=== PATIENT | female | born 1955 | race Caucasian/White ===

== ENCOUNTER → 2016-09-12 | Outpatient (CLI) | payer BC ==
[~2016-09-12] MED LIST: ALFALFA PO; ALPR-411 PO; ASCA500 PO; B COMPLEX PO; CARNITINE PO; CETI10TA84 PO; CLTP PO; COQ-10 PO; DOCU-105 PO; INDO-22 PO; MGN PO; MULT-506 PO; OMEG10007 PO; PSYL55.43 PO
--- NOTE | 2016-09-13 13:13 | MAMMOGRAPHY REPORT ---
BILATERAL DIGITAL SCREENING MAMMOGRAM TOMOSYNTHESIS WITH CAD: 09/12/2016 CLINICAL HISTORY: Routine screening. Patient has no complaints. TECHNIQUE: Breast tomosynthesis in addition to standard 2D mammography was performed. Current study was also evaluated with a Computer Aided Detection (CAD) system. COMPARISON: Comparison is made to exams dated: 09/08/2015 mammogram, 09/02/2014 mammogram, 01/14/2014 ma mmogram, 08/29/2013 mammogram, 08/26/2012 mammogram, and 08/16/2011 mammogram - [facility]. BREAST COMPOSITION: There are scattered areas of fibroglandular density in both breasts. FINDINGS: No new suspicious mass, architectural distortion or cluster of microcalcifications is seen . There is evidence of prior surgery within the left breast. Stable asymmetry in the lateral right breast. IMPRESSION: ACR BI-RADS CATEGORY 1: NEGATIVE There is no mammographic evidence of malignancy. A 1 year screening mammogram is recommended. The pa tient will receive written notification of the results. Approximately 10% of breast cancers are not detected with mammography. A negative mammographic report should not delay biopsy if a clinically suggestive mass is present. Geeta Peters M.D. ay/:09/12/2016 17:56:58 Party Coordinator: Leonidas MENA(R)(M), [facility] letter sent: Normal 1/2 BI-RADS Code: ACR BI-RADS Category 1: Negative
== END | disposition home or self-care (01) ==
LOC: C.MAMM 07:33
PROVIDERS: ATTEND Obstetrics & Gynecology
DX: Z12.31 Encounter for screening mammogram for malignant neoplasm of breast (principal)

== ENCOUNTER → 2016-12-30 | Outpatient (CLI) | payer BC ==
[2016-12-30 11:07] LABS: ALT/SGPT 26 U/L (12-78); AST/SGOT 13 U/L (15-37); BLOOD UREA NITROGEN 15 mg/dl (7-18); CALCIUM 8.6 mg/dl (8.5-10.1); CARBON DIOXIDE 33 mmol/L (21-32); CHLORIDE 108 mmol/L (98-107); CREATININE 0.82 mg/dl (0.60-1.20); GLUCOSE 91 mg/dl (70-99); SODIUM 142 mmol/L (136-145)
[2016-12-30 11:19] LABS: ALB/GLOB RATIO 1.2 (0.9-2); ALKALINE PHOSPHATASE 62 U/L (45-117); CHOLESTEROL 213 mg/dl (0-200); CHOLESTEROL/HDL RATIO 2.3; HDL CHOLESTEROL 94 mg/dl; LDL CHOLESTEROL CALCULATED 104 mg/dl; TRIGLYCERIDES 73 mg/dl (0-150); VERY LOW DENSITY LIPOPROT CALC 15 mg/dl
[2016-12-30 11:22] LABS: URINE APPEARANCE CLEAR (CLEAR); URINE BILIRUBIN NEG (NEG); URINE COLOR YELLOW; URINE NITRITE NEG (NEG); URINE PH 7.5 (4.5-7.5); URINE SPECIFIC GRAVITY 1.013 (1.000-1.030); UROBILINOGEN NEG (NEG); ZZUR CULT IF INDIC CLEAN CATCH NO
[2016-12-30 11:27] LABS: MANUAL MICROSCOPIC REQUIRED? NO; REVIEW REQ? NO
== END | disposition home or self-care (01) ==
LOC: C.LABBC 08:52
PROVIDERS: ATTEND Physician Assistant Medical
DX: Z00.00 Encounter for general adult medical examination without abnormal findings (principal); R31.29 Other microscopic hematuria; R51 Headache

== ENCOUNTER → 2017-05-23 | Outpatient (CLI) | payer BC, OTHER | END | disposition home or self-care (01) | LOC: C.RDSM 14:26 | PROVIDERS: ATTEND Physical Medicine & Rehabilitation Sports Medicine | DX: M25.531 Pain in right wrist (principal); M79.644 Pain in right finger(s); M25.532 Pain in left wrist; M79.645 Pain in left finger(s) ==

== ENCOUNTER → 2017-06-14 | Outpatient (CLI) | payer OTHER | END | disposition home or self-care (01) | LOC: C.MAMM 14:32 | PROVIDERS: ATTEND Physical Medicine & Rehabilitation Sports Medicine | DX: Z78.0 Asymptomatic menopausal state (principal); M85.88 Other specified disorders of bone density and structure, other site ==

== ENCOUNTER → 2017-08-09 | Outpatient (CLI) | payer OTHER ==
[~2017-08-09] MED LIST changes: -ALFALFA PO; -B COMPLEX PO; +CALC600T9 PO; -CARNITINE PO; -CLTP PO; +COEN100C7 PO; -COQ-10 PO; +CYAN100020 PO; +CYCL5TAB PO; -DOCU-105 PO; -MGN PO; +NAPR1TAB9 PO; -PSYL55.43 PO; +VNTHFA/IN INH
== END | disposition home health service (06) ==
LOC: C.CPL 13:31
PROVIDERS: ATTEND Physician Assistant
DX: G56.01 Carpal tunnel syndrome, right upper limb (principal); R20.0 Anesthesia of skin

== ENCOUNTER → 2017-08-16 | Day surgery (SDC) | payer OTHER ==
[2017-07-31 10:42] VITALS: Ht 165.1 cm; Wt 68.2 kg
[~2017-08-16] VITALS: Ht 165.1 cm; Wt 68.2 kg
[~2017-08-16] MED LIST changes: +BUPIVACAINE/EPINEPHRINE 0.5% MPF 1:200,000 30 ML VIAL ONE; +CEFAZOLIN 1000MG IV PUSH 7.5 ML IV SCH; +DEXAMETHASONE SOD INJ 4 MG/ML VIAL ONE; +FENTANYL CITRATE INJ 50 MCG/1 ML 2 ML VIAL ONE; +LACTATED RINGER'S 1000ML 1,000 ML IV SCH; +LIDOCAINE HCL 1% MPF 2 ML VIAL ONE; +LIDOCAINE HCL 2% 2 ML VIAL (20MG/ML) ONE; +LIDOCAINE/EPINEPHRINE 1% 20 ML VIAL ONE; +MIDAZOLAM HCL 1 MG/ML 2ML VIAL ONE; +NURSING VERBAL MED ORDER ONE; +ONDANSETRON INJ 2 MG/ML 2 ML VIAL ONE; +OXYCODONE HCL IR 5 MG TAB (IMMEDIATE RELEASE) PO PRN; +PROMETHAZINE HCL INJ 12.5 MG in SODIUM CHLORIDE 0.9% 50ML 50 ML IV SCH; +PROMETHAZINE HCL INJ 25 MG/ML 1 ML VIAL ONE; +PROPOFOL IV EMULSION 10 MG/ML 20 ML VIAL ONE
--- NOTE | 2017-08-16 07:01 | History & Physical Bridge Note ---
H&P Re-Evaluation Bridge Note: I have examined the patient, reviewed the History & Physical and in the interval since the performance of the History & Physical I have noted the following changes of clinical significance: No changes noted
--- NOTE | 2017-08-16 08:32 | [facility] Post Operative Brief Note ---
Immediate Operative Summary Operative Date August 16, 2017. Pre-Operative Diagnosis Right Carpal Tunnel Syndrome, Right CMC arthritis Post-Operative Diagnosis Same Procedure(s) Performed Right Carpal Tunnel Release And Right Thumb Carpometacarpal Joint Injection With Steroid Surgeon Dr. Link Loom Blower Surgeon(s) Dr. Eladia Lewis, Fellow Estimated Blood Loss 0 Findings Consistent with Post-Op Diagnosis Specimens None Drains None Anesthesia Type Local Complication(s) none Disposition Accompanied Pt To Recovery: no Disposition: Recovery Room / PACU
--- NOTE | 2017-08-16 08:43 | [facility] Operative Report ---
Operative Report Operative Date August 16, 2017. Pre-Operative Diagnosis Right Carpal Tunnel Syndrome, Right CMC arthritis Post-Operative Diagnosis Same Procedure(s) Performed Right Carpal Tunnel Release And Right Thumb Carpometacarpal Joint Injection With Steroid Surgeon Dr. Link Student Counsellor Surgeon(s) Dr. Eladia Lewis, Fellow Estimated Blood Loss 0 Findings None Specimens None Anesthesia Local with IV sedation Complication(s) None Disposition Recovery Room / PACU Indications The patient's a 62-year-old female with symptomatic right thumb CMC arthritis and right carpal tunnel syndrome refractory to nonsurgical methods of management. Description of Procedure Informed consent was obtained. The patient was identified as Margot rosa. The patient identified the operative site as the right hand which I marked with my initials. A preoperative surgical timeout was performed. A preop dose of IV antibiotics was given. The patient was positioned supine on the hospital stretcher with the right arm suspended on a hand table. A tourniquet was applied to the arm. The limb was prepped and draped in the usual sterile fashion. The examination under anesthesia was unremarkable. DVT prophylaxis was not indicated. 1% lidocaine and 0.5% Marcaine containing epinephrine were injected for a carpal tunnel block. The limb was exsanguinated with the Esmarch and the tourniquet was inflated to 225 mmHg. A midline longitudinal incision was made beginning at Jaquez's cardinal line. The incision stopped just short of the distal transverse wrist crease. Blunt dissection was performed down through the subcutaneous tissues and through the superficial palmar fascia. The transverse carpal ligament was identified and divided in line with the incision up into distal forearm fascia under direct visualization. A wide decompression was obtained. The contents of the carpal canal tendons median nerve and tenosynovium appeared to be normal. The wound was copiously irrigated with sterile saline and then closed with 4-0 nylon horizontal mattress stitches. A soft sterile dressing was applied. The tourniquet was let down after 10 of inflation. The patient was awakened from anesthesia without difficulty and taken to the recovery room in stable condition. There were no specimens or complications. Counts were correct at the end of the case. Blood loss was minimal. At the conclusion of the operation spoke to the patient's family and informed them of my findings. Detailed postoperative instructions were given. The patient will be rehabilitated according to the carpal tunnel protocol. Prior to the start of the procedure the right thumb carpometacarpal joint was injected with 10 mg of Depo-Medrol and 1/4 cc of 1% plain lidocaine. Sterile technique was utilized. I attest to the content of the Intraoperative Record and any orders documented therein. Any exceptions are noted below.
--- NOTE | 2017-08-16 08:44 | Discharge Instructions ---
Discharge Instructions Date of Service August 16, 2017. Admission Reason for Admission: Right Carpal Tunnel Syndromre, Right Thumb Pain Discharge Discharge Diagnosis / Problem: right carpal tunnel syndromem right thumb pain Discharge Goals Goal(s): Decrease discomfort, Improve function, Increase independence Activity Recommendations Activity Limitations: per Instructions/Follow-up section Lifting Limitations: until after follow-up appointment Exercise/Sports Limitations: until after follow-up appointment Shower/Bathe: keep incision dry Weightbearing Status: Right non-weightbearing (protect right hand incision ) . Instructions / Follow-Up Instructions / Follow-Up DIET: * Resume previous diet. MEDICATIONS: * Please take your prescriptions as instructed at your pre-op appointment and/ or see medication discharge instructions listed above. * If concerns develop, call your physician's office at . SPECIAL CARE INSTRUCTIONS: * Ice/Elevate as instructed. * Keep dressing clean, dry, intact. * Your surgical extremity may be discolored due to prepping agents used on the skin. A bluish-green tint is a normal variant and should not cause alarm. Call your doctor at [phone] if: * Temperature above 101 degrees * Pain not relieved by pain medicine ordered * There is increased drainage or redness from any incision * You have any unanswered questions, problems or concerns. FOLLOW UP VISIT: * If not already scheduled, please call the office at to schedule a follow-up appointment. Current Hospital Diet Patient's current hospital diet: Discharge Diet Recommended Diet: Regular Diet Procedures Procedures Performed: Right Carpal Tunnel Release And Right Thumb Carpometacarpal Joint Injection With Steroid Pending Studies Studies pending at discharge: no Medical Emergencies . Who to Call and When: Medical Emergencies: If at any time you feel your situation is an emergency, please call 911 immediately. . Non-Emergent Contact Non-Emergency issues call your: Primary Care Provider Call Non-Emergent contact if: you have a fever, temperature is above 100.5, your pain is not controlled, your pain is worsening, wound has increased drainage . "Provider Documentation" section prepared by Jaren Lewis. . [place] Drug Monitoring Program Search Results: patient reviewed within database, no issues identified, see additional documentation
[2017-08-16 08:51] VITALS: TEMP 36.4
[2017-08-16 09:47] VITALS: BP 116/81; PULSE 70; O2SAT 99
--- NOTE | 2017-08-16 09:50 | Anesthesia Progress Nt - [facility] ---
Anesthesia Post Op Note Date & Time August 16, 2017 at 09:50 Vital Signs Pain Intensity: 0 Vital Signs Past 12 Hours Date Time Temp Pulse Resp B/P (MAP) Pulse Ox O2 Delivery O2 Flow Rate FiO2 08/16/17 09:47 70 16 116/81 (93) 99 Room Air 08/16/17 08:51 36.4 75 12 115/73 (87) 96 Room Air 08/16/17 06:47 36.5 77 16 120/80 (93) 99 Room Air Notes Mental Status: alert / awake / arousable, participated in evaluation Pt Amnestic to Procedure: Yes Nausea / Vomiting: adequately controlled Pain: adequately controlled Airway Patency, RR, SpO2: stable & adequate BP & HR: stable & adequate Hydration State: stable & adequate Anesthetic Complications: no major complications apparent
== END | disposition home or self-care (01) ==
LOC: X.SURG 06:34
PROVIDERS: ATTEND Physical Medicine & Rehabilitation Sports Medicine
DX: G56.01 Carpal tunnel syndrome, right upper limb (principal); M18.11 Unilateral primary osteoarthritis of first carpometacarpal joint, right hand; I34.1 Nonrheumatic mitral (valve) prolapse; F41.9 Anxiety disorder, unspecified; M19.90 Unspecified osteoarthritis, unspecified site; K21.9 Gastro-esophageal reflux disease without esophagitis; Z79.899 Other long term (current) drug therapy; Z88.6 Allergy status to analgesic agent; Z88.1 Allergy status to other antibiotic agents; Z88.5 Allergy status to narcotic agent; Z91.041 Radiographic dye allergy status